=== PATIENT | female | born 1960 | race Caucasian/White ===

== ENCOUNTER 2017-08-13 16:14 | Emergency (ER) | payer OTHER ==
[~2017-08-13] VITALS: Ht 182.9 cm; Wt 64.0 kg
[~2017-08-13 16:14] MED LIST: ACCUNEB SO1.25 MG/1 INH; ACCUNEB0.63 MG/3 INH; ADVAIR 250-501 EACH INH; ALENDRONATE SOD70 MG PO; ALPRAZOLAM2 MG PO; AMBEREN; AMBIEN 10 MG TA10 MG PO; AMBIEN 5 MG TABL5 M1 PO; APAP500 PO; ATIVAN1 MG PO; AUGMENTIN 875-1 EACH PO; AUGMENTIN 875875 MG PO; AZITHROMYCIN 2250 MG PO; BACTRIM DS TAB1 EAC1 PO; BACTRIM DS TAB1 EACH PO; BENTYL10 MG PO; CALCIUM 600 +1 EAC8 PO; CALCIUM OYSTER500 MG; CARISOPRODOL 3350 MG PO; CELEBREX 200 M200 M1 PO; CELEBREX 200 M200 MG PO; CELEXA PO; CELEXA40 MG PO; CEPHALEXIN 500500 M3 PO; CIPRO250 M1 PO; CIPRO500 MG PO; CLEOCIN HCL300 MG PO; CLONAZEPAM 1 MG1 M1 PO; CLONAZEPAM PO; CLONIDINE0.1 PO; COLACE100 MG PO; COUMADIN 1MG TAB1 M1 PO; COUMADIN 4 MG TA4 M1 PO; COUMADIN 5 MG TA5 M1 PO; COUMADIN 5 MG TA5 MG PO; CYCLOBENZAPRINE10 MG PO; CYMBALTA30 MG PO; DEPAKOTE ER500 MG PO; DEPAKOTE PO; DILAUDID 2 MG TA2 MG PO; DIPHENOXYLATE/A1 TA1 PO; ENOXAPARIN30 MG/0.1 SUBQ; ENOXAPARIN80 MG/0.1 SUBQ; ENOXAPARIN80 MG/0.8 SUBQ; EXALGO16 MG PO; FERROUS FUMARA324 MG PO; FEVERALL650 MG RECTAL; FIORICET 50-301 EACH PO; FIORICET 50-321 EACH PO; FLAGYL500 M1 PO; FLAGYL500 MG PO; FLEXERIL PO; FLOMAX0.4 MG PO; FLONASE 0.05%50 MCG INH; FOSAMAX 70 MG T70 MG PO; GABAPENTIN PO; HYDROCHLOROTHIA25 M1 PO; HYDROCHLOROTHIA25 M2 PO; HYDROCHLOROTHIA50 MG; HYDROCODON-ACE1 EAC8 PO; HYDROCORTISONE3011; HYDROCORTISONE3011 TP; HYDROMORPHONE E16 MG PO; HYDROMORPHONE HC8 MG; IMITREX 50 MG T50 MG PO; IMITREX4 MG/0.5 M SQ; K-DUR 20 MEQ T20 MEQ PO; K-DUR10 MEQ PO; KEFLEX250 MG PO; KEFLEX500 MG PO; KEPPRA 500 MG500 M1 PO; KLOR-CON PO; LANSOPRAZOLE30 MG PO; LEVOTHYROXIN0.075 MG; LEVOTHYROXINE 0.15MG PO; LEVOTHYROXINE PO; LEVOTHYROXINE0.2 M1 PO; LEXAPRO 10 MG T10 M1 PO; LEXAPRO PO; LEXAPRO20 MG PO; LIDOCAINE PATCH; LIDODERM 5%1 PATCH; LIDODERM 5%1 PATCH TOP; LIDODERM 5%1 PATCH TRANSDERM; LOVENOX SC; MACROBID 100 M100 M1 PO; MEDROLDOSEPACK PO; MELOXICAM7.5 MG PO; MIRALAX17 GM PO; MOBIC15 MG PO; MS CONTIN60 MG PO; NEURONTIN 300300 M1 PO; NITROGLYCERIN0.4 MG SL; NORCO 5-325 TA1 EACH PO; NORVASC5 MG PO; ONDANSETRON HCL4 M2 PO; OXYCODONE HCL 55 MG PO; OXYCODONE HCL10 MG; OXYCODONE HCL10 MG PO; OXYCODONE HCL15 MG; OXYCODONE HCL15 MG PO; OXYCONTIN30 MG PO; OXYCONTIN40 MG PO; PERCOCET 10-321 EACH PO; PERCOCET 5-3251 EACH PO; PERCOCET 7.5-31 EACH PO; PHENERGAN 25 MG25 M1 PO; PHENERGAN 25 MG25 MG PO; POTASSIUM20 PO; PREDNISONE 20 M20 M1 PO; PROAIR HFA8.5 GM INH; PROMETHAZINE HC25 M1 PO; PROMETHAZINE12.5 M1 PO; PROMS25 WY RECTAL; PROTONIX40 M1 PO; ROXICODONE15 M1 PO; SIMVASTATIN20 MG PO; SPIRIVA INH; SYMBICORT160 MCG/4. INH; SYMBICORT80 MCG/4.1 INH; SYNTHROID175 MCG; SYNTHROID200 MCG PO; SYNTHROID25 MCG PO; THERA-TABS M C1 EACH PO; TOPAMAX 25 MG T25 M1 PO; TOPAMAX50 MG PO; VANCOCIN 125 M125 M1 MC; VANCOMYCIN1 GM/100 M; VENTOLIN HFA INH8 GM INH; VERAPAMIL ER240 MG PO; VERAPAMIL ER300 MG PO; VERAPAMIL HCL360 MG PO; VERAPAMIL PO; XANAX 1 MG TABLE1 MG PO; XANAX1 MG PO; XARELTO10 MG PO; XARELTO15 MG PO; XARELTO20 MG PO; ZANAFLEX4 MG PO; ZOCOR 10 MG TAB10 MG PO; ZOCOR 20 MG TAB20 M1 PO; ZOFRAN ODT4 MG PO; ZOFRAN4 MG PO; ZYPREXA 10 MG T10 M1; ZYPREXA 10 MG T10 MG PO; ZYPREXA 5 MG TAB5 M1 PO; ZYPREXA20 MG PO; ZYVOX600 MG
[2017-08-13 19:12] VITALS: BP 151/101
== END 2017-08-13 19:13 | disposition home or self-care (01) ==
LOC: M.ERS 16:14
DX: G43.909 Migraine, unspecified, not intractable, without status migrainosus (principal); I10 Essential (primary) hypertension; E89.0 Postprocedural hypothyroidism; J44.9 Chronic obstructive pulmonary disease, unspecified; G40.909 Epilepsy, unspecified, not intractable, without status epilepticus; F17.210 Nicotine dependence, cigarettes, uncomplicated; F10.99 Alcohol use, unspecified with unspecified alcohol-induced disorder; Z86.73 Personal history of transient ischemic attack (TIA), and cerebral infarction without residual deficits; Z86.718 Personal history of other venous thrombosis and embolism; Z98.890 Other specified postprocedural states; Z88.1 Allergy status to other antibiotic agents; Z88.5 Allergy status to narcotic agent; Z88.6 Allergy status to analgesic agent

== ENCOUNTER 2017-11-04 18:54 | Emergency (ER) | payer OTHER ==
[~2017-11-04] VITALS: Ht 182.9 cm; Wt 64.0 kg
[2017-11-04 20:04] LABS: ABSOLUTE BASOPHILS 0.1 thou/uL (0.0-0.2); ABSOLUTE MONOCYTES 0.7 thou/uL (0.0-1.2); ABSOLUTE NEUTROPHILS 14.6 thou/uL (1.6-8.1); BASOPHILS 0.8 %; HEMATOCRIT 43.1 % (37.0-47.0); HEMOGLOBIN 14.6 gm/dL (12.0-15.0); LYMPHOCYTES 16.2 %; MCHC 33.9 g/dL (28.0-37.0); MCV 85.7 fL (80.0-100.0); MONOCYTES 3.6 %; MPV 9.2 fl. (7.2-11.1); NUCLEATED RBCS 0 /100WBC; PLATELET COUNT* 324 thou/uL (150-400); POLYS 79.4 %; RBC 5.03 mil/uL (4.20-5.00); RDW-CV 17.1 % (10.5-14.5); WBC 18.3 thou/uL (4.0-11.0)
[2017-11-04 20:19] LABS: ANION GAP 24 mmol/L (7-16); BUN 11 mg/dL (7-18); CALCIUM 8.3 mg/dL (8.5-10.1); CHLORIDE 102 mmol/L (98-107); CO2 13 mmol/L (21-32); CREATININE 0.8 mg/dL (0.6-1.3); GLUCOSE 126 mg/dL (70-99); SODIUM 139 mmol/L (136-145)
[2017-11-04 20:26] LABS: ALKALINE PHOSPHATASE 106 U/L (46-116); SGOT 25 U/L (15-37); SGPT 15 U/L (30-65); TOTAL BILIRUBIN 0.6 mg/dL (<0.1-1.0); TROPONIN-I LEVEL <0.06 ng/mL (<0.06)
[2017-11-04] MEDS ORDERED: PREDNISONE50 MG PO (22:12)
[2017-11-04] MEDS ORDERED: ZPAK PO (22:12)
[2017-11-04 22:34] VITALS: BP 135/69
--- NOTE | 2017-11-05 11:00 | EKG ---
[place] [address] ELECTROCARDIOGRAM REPORT Name: JOSE M RICHARD Room: [facility]#: [id number] Admission: 11/04/17 Attend Phys: Discharge: 11/04/17 Date of : 60 Report #: [id number] THIS REPORT FOR: //name// [facility] ED Test Date: 2017-11-04 Test Time: 19:02:08 Pat Name: JOSE M HILARY Department: Room: Gender: F Retort Load Expediter: VINI : 1960 Requested By: Isabel Murphy Order Number: [id number] MD: Pedro Beckwith Measurements Intervals [place] Rate: 111 P: 62 HI: 138 QRS: 58 QRSD: 93 T: 42 QT: 355 QTc: 483 Interpretive Statements Sinus tachycardia artifact noted Compared to ECG 08/19/2016 21:59:47 artifact noted Electronically Signed On 11-05-2017 11:00:22 CONTACT LENS POLISHER by Pedro Beckwith [email or web address] <ELECTRONICALLY SIGNED> By: Pedro Beckwith MD, [facility] 11/05/17 1100 190 190 Pedro Beckwith MD, FACC /EPI
== END 2017-11-04 22:36 | disposition home or self-care (01) ==
LOC: M.ERS 18:54
PROVIDERS: Personal Emergency Response Attendant
DX: J40 Bronchitis, not specified as acute or chronic (principal); I10 Essential (primary) hypertension; J44.9 Chronic obstructive pulmonary disease, unspecified; G43.909 Migraine, unspecified, not intractable, without status migrainosus; M81.0 Age-related osteoporosis without current pathological fracture; F17.210 Nicotine dependence, cigarettes, uncomplicated; Z96.652 Presence of left artificial knee joint; Z86.718 Personal history of other venous thrombosis and embolism; Z86.711 Personal history of pulmonary embolism; Z86.73 Personal history of transient ischemic attack (TIA), and cerebral infarction without residual deficits; Z88.6 Allergy status to analgesic agent; Z88.1 Allergy status to other antibiotic agents; Z88.5 Allergy status to narcotic agent

== ENCOUNTER 2018-01-23 10:58 | Emergency (ER) | payer OTHER ==
[~2018-01-23] VITALS: Ht 182.9 cm; Wt 60.8 kg
[~2018-01-23 10:58] MED LIST changes: -MS CONTIN15 MG PO
[2018-01-23] MEDS ORDERED: MS CONTIN15 MG PO (11:31)
[2018-01-23] MEDS ORDERED: COUMADIN 5 MG TA5 M1 PO (11:32)
[2018-01-23] MEDS ORDERED: ONDANSETRON HCL4 M2 PO (12:54)
[2018-01-23 13:39] VITALS: BP 146/74
== END 2018-01-23 13:41 | disposition home or self-care (01) ==
LOC: M.ERS 10:58
DX: G43.909 Migraine, unspecified, not intractable, without status migrainosus (principal); I10 Essential (primary) hypertension; J44.9 Chronic obstructive pulmonary disease, unspecified; F17.210 Nicotine dependence, cigarettes, uncomplicated; Z88.1 Allergy status to other antibiotic agents; Z88.5 Allergy status to narcotic agent; Z88.8 Allergy status to other drugs, medicaments and biological substances

== ENCOUNTER → 2018-01-23 | Outpatient (CLI) | payer OTHER ==
[~2018-01-23] MED LIST changes: +MS CONTIN15 MG PO; +PREDNISONE50 MG PO; +ZPAK PO
== END ==
LOC: M.ULTRA 10:20
DX: R22.42 Localized swelling, mass and lump, left lower limb (principal)

== ENCOUNTER 2018-03-18 15:54 | Inpatient (IN) | payer OTHER ==
[~2018-03-18] VITALS: Ht 182.9 cm; Wt 68.0 kg
[~2018-03-18 15:54] MED LIST changes: +MS CONTIN15 MG PO
[2018-03-18 16:10] VITALS: BP 164/108
[2018-03-18 17:14] LABS: ABSOLUTE BASOPHILS 0.1 thou/uL (0.0-0.2); ABSOLUTE LYMPHOCYTES 1.9 thou/uL (0.8-5.3); ABSOLUTE MONOCYTES 0.4 thou/uL (0.0-1.2); ABSOLUTE NEUTROPHILS 5.3 thou/uL (1.6-8.1); EOSINOPHILS 0.1 %; HEMATOCRIT 34.5 % (37.0-47.0); HEMOGLOBIN 11.6 gm/dL (12.0-15.0); LYMPHOCYTES 24.9 %; MCH 27.8 pg (26.0-34.0); MCHC 33.6 g/dL (28.0-37.0); MCV 82.8 fL (80.0-100.0); MONOCYTES 5.7 %; MPV 8.7 fl. (7.2-11.1); NUCLEATED RBCS 0 /100WBC; PLATELET COUNT* 250 thou/uL (150-400); POLYS 68.3 %; RBC 4.17 mil/uL (4.20-5.00); RDW-CV 18.9 % (10.5-14.5); WBC 7.8 thou/uL (4.0-11.0)
[2018-03-18 17:28] LABS: CALCIUM 8.2 mg/dL (8.5-10.1); CREATININE 0.7 mg/dL (0.6-1.3)
[2018-03-18 17:33] LABS: ALBUMIN 3.8 g/dL (3.4-5.0); TOTAL BILIRUBIN 0.3 mg/dL (<0.1-1.0); TOTAL PROTEIN 7.6 g/dL (6.4-8.2)
[2018-03-18 17:53] LABS: ACETAMINOPHEN < 2 ug/mL (10-30); SALICYLATE 73.1 mg/dL (2.8-20.0)
[2018-03-18 19:09] LABS: APTT 78.4 Seconds (25.0-31.3); INR 9.1
[2018-03-18 19:26] LABS: NT-PRO BRAIN NAT PEPTIDE 371 pg/mL (<300); TROPONIN-I LEVEL <0.06 ng/mL (<0.06)
[2018-03-18 19:56] LABS: URINE BILIRUBIN NEGATIVE (Negative); URINE BLOOD NEGATIVE (Negative); URINE CLARITY CLEAR; URINE COLOR YELLOW; URINE GLUCOSE-RANDOM NEGATIVE (Negative); URINE KETONES NEGATIVE (Negative); URINE LEUKOCYTES-REFLEX NEGATIVE (Negative); URINE NITRITE-REFLEX NEGATIVE (Negative); URINE PROTEIN NEGATIVE (Negative); URINE SPECIFIC GRAVITY <= 1.005 (1.005-1.030); URINE UROBILINOGEN 0.2 E.U./dl (0.2-1.0)
[2018-03-18 20:04] LABS: AMP/METHAMP Negative (Negative); BARBITURATES Negative (Negative); BENZODIAZEPINES Negative (Negative); COCAINE Negative (Negative); METHADONE Negative (Negative); OPIATES Negative (Negative); PCP Negative (Negative); THC Negative (Negative)
[2018-03-18 20:18] LABS: BE -2.1 mmol/L (-2 to +3); PCO2 26.5 mmHg (35.0-45.0); PO2 88.8 mmHg (75.0-100.0); pH 7.496 (7.340-7.450)
--- NOTE | 2018-03-18 21:30 | NUR ---
ACCORDING TO DIALYSIS NURSE BANG, DR SHOEMAKER WANTS PATIENT DIALYZED TO TAKE THE ASPRIN OFF TONIGHT. HIS CALL BACK NUMBER IS [phone]. HE WOULD LIKE NOTIFIED WHEN HE CAN COME DIALYZE PATIENT.
[2018-03-18 22:22] LABS: PROTIME 79.6 Seconds (9.20-11.50)
[2018-03-18 22:27] LABS: INR 8.5
[2018-03-18 22:50] VITALS: BP 133/82
[2018-03-18 23:11] VITALS: BP 127/81
[2018-03-19] VITALS (12 sets, daily range): BP systolic 110–136; BP diastolic 61–84
[2018-03-19 01:12] LABS: INR 7.3; PROTIME 68.3 Seconds (9.20-11.50)
--- NOTE | 2018-03-19 04:22 | NUR ---
ADMITTED TO ICU BED 4 @ 2305. PT C/O HEADACHE AND CHRONIC PAIN, ONE DOSE MORPHINE ORDERED AND GIVEN WITH LITTLE RELIEF. PT OVERALL COOPERATIVE BUT AT TIMES VERY DEMANDING. C/O BEING HUNGRY, EDUCATED ON NPO STATUS FOR DIALYSIS CATH PLACEMENT TO WHICH PT REPLIED "I DON'T CARE, I KNOW THAT WHEN I'M HUNGRY I NEED TO EAT. I'LL HAVE SOMEONE BRING ME SOMETHING." PT KEEPS PURSE IN BED, DECLINED TO HAVE IT LOCKED IN SECURITY OFFICE. PURSE NOTED TO CONTAIN OTC PILL BOTTLES, PT REFUSED TO HAVE THEM SENT TO PHARMACY. PT INFORMED THAT SHE SHOULD NOT TAKE ANY MEDS OTHER THAN PRESCRIBED BY , SHE REPLIED "I DO IT MY WAY. IF I NEED IT I TAKE IT." PT MENTIONED SEVERAL TIMES CONSIDERING LEAVING AMA AND WAS EDUCATED ON THE RISKS DUE TO CONDITION. L BKA, PROSTHESIS PRESENT. PT ASSISTED TO BSC X1 WITH SBA ONLY, TRANSFERRED TO BSC INDEPENDENTLY WITHOUT USE OF PROSTHESIS. VSS. SPOKE TO DR SHOEMAKER @ 0400, REPORTED MOST RECENT SALICYLATE LEVEL. HE STATED THAT MOST LIKELY PT WILL NOT NEED DIALYSIS LEVEL IS TRENDING DOWN QUICKER THAN EXPECTED HOWEVER ROUNDING PHYSICIAN THIS AM TO MAKE FINAL DETERMINATION, REGULAR DIET ORDERED AT THIS TIME BY DR SHOEMAKER.
[2018-03-19 04:46] LABS: INR 2.5
[2018-03-19 08:58] LABS: CALCIUM 7.4 mg/dL (8.5-10.1); CREATININE 0.7 mg/dL (0.6-1.3); MAGNESIUM 1.9 mg/dL (1.8-2.4); POTASSIUM 3.1 mmol/L (3.5-5.1)
--- NOTE | 2018-03-19 09:46 | NUR ---
PATIENT BEING ARGUMENTATIVE, WANTS TO LEAVE AMA. EXPLAINED TO HER THAT SHE JUST GOT THE MEDICATIONS FOR HER MIGRAINE 30 MINUTES AGO AND NEEDS TO LET THEM WORK, PATIENT IS CONFUSED AND THINKS ITS 2010 AND ITS March. RESPIRATORY IN ROOM HAVING TO HOLD BREATHING TREATMENT FOR PATIENT BECAUSE SHE CAN NOT STAY AWAKE. PULLED OUT ONLY IV ON FOOT. NO IVS PRESENT AT THIS TIME. PATIENT WANTS TO SPEAK TO RAIL WASHER, JIGAR MALDONADO ON WAY.
--- NOTE | 2018-03-19 10:17 | EKG ---
[place] [address] ELECTROCARDIOGRAM REPORT Name: JOSE M RICHARD Room: [address] ADM IN M.R.#: [id number] Admission: 03/18/18 Attend Phys: Vera Paredes Discharge: Date of : 60 Report #: [id number] THIS REPORT FOR: //name// [facility] ED Test Date: 2018-03-18 Test Time: 18:52:49 Pat Name: JOSE M RICHARD Department: Room: Gender: F Collar Runner: : 1960 Requested By: Isabel Silveira Order Number: [id number] MD: Pedro Beckwith Measurements Intervals [place] Rate: 87 P: 74 HI: 139 QRS: 72 QRSD: 83 T: 56 QT: 406 QTc: 489 Interpretive Statements Sinus rhythm Multiple premature complexes, vent & supraven Borderline prolonged QT interval Compared to ECG 11/04/2017 19:02:08 Sinus tachycardia no longer present pvc and pac no longer seen Electronically Signed On 03-19-2018 10:17:24 CDT by Pedro Beckwith [email or web address] <ELECTRONICALLY SIGNED> By: Pedro Beckwith MD, FAC 03/19/18 1017 185 185 Pedro Beckwith MD, [facility] /EPI
--- NOTE | 2018-03-19 10:57 | NUR ---
PATIENT FRIEND AT BEDSIDE AT THIS TIME, PATIENT AGAIN WANTS TO LEAVE AMA, FRIEND ASKED WHAT WAS GOING ON, EXPLAINED THE CARE THAT SHE HAS RECEIVED AND THE PLAN OF CARE, FRIEND TOLD PATIENT THAT SHE IS NOT TAKING HER HOME AND THAT SHE NEEDS TO STAY AND GET BETTER AND FIGURE OUT WHAT IS CAUSING HER MIGRAINES. PATIENT IS AGREEING TO STAY AT THIS TIME, WILL CONTINUE TO MONITOR.
--- NOTE | 2018-03-19 11:12 | CON ---
[address] [address] CONSULTATION Name: JOSE M RICHARD Room: [address] IN M.R.#: [id number] Admission: 03/18/18 Attend Phys: Vera Paredes Discharge: Date of : 60 Report #: [id number] THIS REPORT FOR: //name// CC: Andres Longoria DATE OF SERVICE: 03/18/2018 RENAL CONSULTATION Thank you very much for asking me to see the patient. HISTORY OF PRESENT ILLNESS: The patient is a 58-year-old female without history of kidney disease. She presented to the Emergency Department today with complaints of severe chronic headache and chronic pain and the patient has been taking excessive amount of aspirin and renal consultation requested for management of an aspirin overdose. At this time, the patient notes nausea and vomiting. She did not have tinnitus. Her mental status appears to be at baseline. She has been previously seen for an aspirin overdose and seems to be familiar with its management. Otherwise, no other complaints were noted. PAST MEDICAL HISTORY: 1. Chronic pain. 2. Chronic recurrent migraine. 3. Left bjnsm-dsf-ubwk amputation. 4. Chronic hypokalemia. 5. History of CVA in 2005, 2006 and 2013. 6. Hypertension. 7. Previous aspirin overdose in 2016, which required acute hemodialysis. ALLERGIES: SHE HAS ALLERGIES TO NONSTEROIDAL ANTI-INFLAMMATORY AGENTS, AMOXICILLIN AND CODEINE. CURRENT MEDICATIONS: I do not have a current medication list. SOCIAL HISTORY: Notable for tobacco use. No alcohol use. FAMILY HISTORY: Negative for kidney disease. PHYSICAL EXAMINATION: VITAL SIGNS: Blood pressure 154/76, pulse 80, temperature 99. GENERAL: She is awake and alert. Mental status is at baseline. She is tachypneic on exam. MOUTH AND THROAT: Clear. NECK: No jugular [place] [address] CONSULTATION Name: JOSE M RICHARD AKUA Room: [address]#: [id number] Admission: 03/18/18 Attend Phys: Vera Paredes Discharge: Date of : 60 Report #: [id number] CHEST: Clear. HEART: Regular rate and rhythm. ABDOMEN: Soft. EXTREMITIES: There is no edema. LABORATORY DATA: Arterial blood gases a pH of 7.49, CO2 of 26.5, O2 of 88. Sodium of 142, potassium 3.0, chloride 105, CO2 of 21, BUN 9, creatinine 0.7. Salicylate level of 73. Drug screen was negative. CT scan of the head was negative. IMPRESSION: 1. Salicylate overdose. She has an initial salicylate level of 73, which is quite high. She would be at risk for mental status changes and intracerebral hypoglycemia. 2. Respiratory alkalosis due to a salicylate overdose. 3. Hypokalemia, chronic. 4. Hypertension. 5. Chronic pain. 6. Chronic recurrent migraine. 7. Left tforh-vjl-oxkn amputation. 8. History of cerebrovascular accident. 9. Hypertension. RECOMMENDATIONS: 1. The case was discussed in detail with Dr. Moody. 2. Begin IV fluids with bicarbonate. 3. Her INR is 9.1. This will need to be corrected. 4. Anticipate placement of a temporary hemodialysis catheter. 5. We will plan for hemodialysis this evening when possible. 6. Follow laboratory data carefully. Thank you very much for asking me to see this patient and allowing me to assist in her care. <ELECTRONICALLY SIGNED> By: Rosales Lewis MD 03/19/18 1112 2151 [id number] Lewis MD /nt
--- NOTE | 2018-03-19 11:51 | NUR ---
PT ADMITTED WITH UNINTENTIONAL ASPIRIN OVERDOSE, SHE HAD BEEN TAKING A LOT OF ASPIRIN FOR HER MIGRAINE. SALICYLATE LEVEL COMING DOWN, NO NEED FOR HEMODIALYSIS. PT CURRENTLY SLEEPING SO DID NOT DISTURB. PT HAS BEEN CONFUSED AND AGITATED THIS MORNING, HER FRIEND CAME TO VISIT HER, PT WANTING TO LEAVE AMA. FRIEND TOLD PT SHE WAS NOT TAKING HER HOME AND SHE NEEDED TO STAY TO BE TAKEN CARE OF. PT SETTLED DOWN SOME AND AGREEING TO STAY FOR NOW.
--- NOTE | 2018-03-19 13:04 | NUR ---
PATIENT WANTED TO SPEAK TO DR GREGG, CALLED HIM AND UPDATED HIM ON PATIENT COMPLAINTS, TRANSFERED HIM INTO PATIENT ROOM TO SPEAK WITH HER TO LET HER KNOW HE WAS NOT GOING TO ADJUST HER MEDICATIONS AND SHE SPOKE WITH HIM BRIEFLY AND HUNG UP ON HIM. SAYS SHE IS CALLING A RIDE TO GO HOME.
--- NOTE | 2018-03-19 16:45 | NUR ---
SALICICYLATE LEVEL IS 21 NOW, PATIENT DOESN'T WANT TO STAY OVERNIGHT, CALLED DR GREGG FOR DISCHARGE ORDERS. OK TO DISCHARGE, RECOMMEND NOT TAKING ASPIRIN FOR NEXT 24 HOURS AND TO FOLLOW UP WITH PRIMARY AND PAIN CLINIC DOCTOR. PATIENT COMMUNICATES UNDERSTANDING. PATIENT IS CALLING FRIEND TO PICK HER UP,
--- NOTE | 2018-03-19 17:06 | NUR ---
DISCHARGE INSTRUCTIONS GIVEN, ALL QUESTIONS ANSWERED. PATIENTS FRIEND IS ON HER WAY TO GET HER. ALL BELONGINGS PACKED AND PATIENT IS READY TO GO.
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
== END 2018-03-19 17:38 | disposition home or self-care (01) | DRG 917 ==
LOC: M.ERS 15:54 → M.TBA-ER 19:14 → M.ICU 19:14
PROVIDERS: Emergency Medicine; Internal Medicine; Physician Assistant; Surgery; ADMIT Internal Medicine
DX: T39.011A Poisoning by aspirin, accidental (unintentional), initial encounter (principal); G92 Toxic encephalopathy; D68.59 Other primary thrombophilia; E87.2 Acidosis; I10 Essential (primary) hypertension; J44.9 Chronic obstructive pulmonary disease, unspecified; E87.6 Hypokalemia; G43.909 Migraine, unspecified, not intractable, without status migrainosus; F17.210 Nicotine dependence, cigarettes, uncomplicated; M81.0 Age-related osteoporosis without current pathological fracture; E89.0 Postprocedural hypothyroidism; Z79.899 Other long term (current) drug therapy; Z88.6 Allergy status to analgesic agent; Z88.1 Allergy status to other antibiotic agents; Z89.512 Acquired absence of left leg below knee; Z88.5 Allergy status to narcotic agent; Z88.8 Allergy status to other drugs, medicaments and biological substances; Z86.73 Personal history of transient ischemic attack (TIA), and cerebral infarction without residual deficits; Y92.89 Other specified places as the place of occurrence of the external cause

== ENCOUNTER → 2018-04-03 | Outpatient (CLI) | payer OTHER ==
[~2018-04-03] MED LIST changes: +CARAFATE 1 GM TA1 G1 PO; +DOXEPIN 75 MG C75 M1 PO; +HYDROCHLOROTH12.5 M1 PO
== END ==
LOC: M.ULTRA 04-02 09:30
DX: M85.651 Other cyst of bone, right thigh (principal)

== ENCOUNTER 2018-09-02 18:09 | Emergency (ER) | payer OTHER ==
[~2018-09-02] VITALS: Ht 182.9 cm; Wt 61.2 kg
[~2018-09-02 18:09] MED LIST changes: -CARAFATE 1 GM TA1 G1 PO; -DOXEPIN 75 MG C75 M1 PO; -HYDROCHLOROTH12.5 M1 PO
[2018-09-02 18:59] LABS: ABSOLUTE BASOPHILS 0.2 thou/uL (0.0-0.2); ABSOLUTE EOSINOPHILS 0.2 thou/uL (0.0-0.7); ABSOLUTE LYMPHOCYTES 3.4 thou/uL (0.8-5.3); ABSOLUTE MONOCYTES 0.6 thou/uL (0.0-1.2); ABSOLUTE NEUTROPHILS 11.7 thou/uL (1.6-8.1); BASOPHILS 1.3 %; EOSINOPHILS 1.3 %; HEMATOCRIT 40.3 % (37.0-47.0); HEMOGLOBIN 13.3 gm/dL (12.0-15.0); LYMPHOCYTES 21.1 %; MCH 29.1 pg (26.0-34.0); MCHC 32.9 g/dL (28.0-37.0); MCV 88.5 fL (80.0-100.0); MONOCYTES 3.6 %; MPV 9.5 fl. (7.2-11.1); NUCLEATED RBCS 0 /100WBC; PLATELET COUNT* 217 thou/uL (150-400); POLYS 72.7 %; RBC 4.56 mil/uL (4.20-5.00); RDW-CV 17.1 % (10.5-14.5)
[2018-09-02 19:05] LABS: INR 1.5; PROTIME 15.4 Seconds (9.20-11.50)
[2018-09-02 19:07] LABS: ANION GAP 11 mmol/L (7-16); BUN 11 mg/dL (7-18); CALCIUM 8.8 mg/dL (8.5-10.1); CHLORIDE 105 mmol/L (98-107); CO2 25 mmol/L (21-32); CREATININE 0.9 mg/dL (0.6-1.3); GLUCOSE 87 mg/dL (70-99); SODIUM 141 mmol/L (136-145)
[2018-09-02] MEDS ORDERED: DOXEPIN 75 MG C75 M1 PO (19:09)
[2018-09-02] MEDS ORDERED: CARAFATE 1 GM TA1 G1 PO (19:10)
[2018-09-02] MEDS ORDERED: HYDROCHLOROTH12.5 M1 PO (19:10)
[2018-09-02] MEDS ORDERED: KEFLEX250 MG PO (19:10)
[2018-09-02 19:17] LABS: ALBUMIN 3.6 g/dL (3.4-5.0); ALKALINE PHOSPHATASE 96 U/L (46-116); LIPASE 209 U/L (73-393); MAGNESIUM 1.7 mg/dL (1.8-2.4); NT-PRO BRAIN NAT PEPTIDE 44 pg/mL (<300); SGOT 19 U/L (15-37); SGPT 16 U/L (30-65); TOTAL BILIRUBIN 0.2 mg/dL (<0.1-1.0); TOTAL PROTEIN 6.9 g/dL (6.4-8.2); TROPONIN-I LEVEL <0.06 ng/mL (<0.06)
[2018-09-02 20:01] VITALS: BP 133/94
--- NOTE | 2018-09-03 15:27 | EKG ---
[place] [address] ELECTROCARDIOGRAM REPORT Name: JOSE M RICHARD Room: [facility]#: [id number] Admission: 09/02/18 Attend Phys: Discharge: 09/02/18 Date of : 60 Report #: [id number] THIS REPORT FOR: //name// [facility] ED Test Date: 2018-09-02 Test Time: 18:15:28 Pat Name: JOSE M RICHARD Department: Room: Gender: F Bread Packer: Coby ANTUNEZ : 1960 Requested By: Jake Whalen Order Number: [id number] MD: Harry Rodriguez Measurements Intervals [place] Rate: 97 P: 68 [place]: 143 QRS: 68 QRSD: 90 T: 56 QT: 362 QTc: 460 Interpretive Statements Sinus rhythm Compared to ECG 03/18/2018 18:52:49 No significant changes Electronically Signed On 09-03-2018 15:26:50 CYBER SECURITY by Harry Rodriguez [email or web address] <ELECTRONICALLY SIGNED> By: Harry Rodriguez MD, [facility] 09/03/18 1526 1815 1815 Harry Rodriguez MD, FACC /EPI
== END 2018-09-02 20:02 | disposition home or self-care (01) ==
LOC: M.ERS 18:09
PROVIDERS: Emergency Medicine Emergency Medical Services
DX: R07.89 Other chest pain (principal); I10 Essential (primary) hypertension; E89.0 Postprocedural hypothyroidism; J44.9 Chronic obstructive pulmonary disease, unspecified; G43.909 Migraine, unspecified, not intractable, without status migrainosus; M81.0 Age-related osteoporosis without current pathological fracture; F17.210 Nicotine dependence, cigarettes, uncomplicated; Z86.718 Personal history of other venous thrombosis and embolism; Z86.73 Personal history of transient ischemic attack (TIA), and cerebral infarction without residual deficits; Z86.711 Personal history of pulmonary embolism; Z88.1 Allergy status to other antibiotic agents; Z88.6 Allergy status to analgesic agent; Z88.8 Allergy status to other drugs, medicaments and biological substances

== ENCOUNTER 2019-04-14 12:14 | Emergency (ER) | payer MEDICARE ==
[~2019-04-14] VITALS: Ht 175.3 cm; Wt 71.7 kg
[~2019-04-14 12:14] MED LIST changes: +CARAFATE 1 GM TA1 G1 PO; +DOXEPIN 75 MG C75 M1 PO; +HYDROCHLOROTH12.5 M1 PO
[2019-04-14] MEDS ORDERED: FEMARA2.5 MG PO (12:24)
[2019-04-14 12:39] LABS: ABSOLUTE BASOPHILS 0.1 thou/uL (0.0-0.2); ABSOLUTE EOSINOPHILS 0.1 thou/uL (0.0-0.7); ABSOLUTE LYMPHOCYTES 1.6 thou/uL (0.8-5.3); ABSOLUTE MONOCYTES 0.3 thou/uL (0.0-1.2); ABSOLUTE NEUTROPHILS 3.9 thou/uL (1.6-8.1); BASOPHILS 1.3 %; HEMATOCRIT 35.6 % (37.0-47.0); HEMOGLOBIN 11.9 gm/dL (12.0-15.0); MCH 28.7 pg (26.0-34.0); MCHC 33.5 g/dL (28.0-37.0); MCV 85.7 fL (80.0-100.0); MONOCYTES 5.1 %; MPV 8.4 fl. (7.2-11.1); NUCLEATED RBCS 0 /100WBC; PLATELET COUNT* 318 thou/uL (150-400); POLYS 64.6 %; RBC 4.15 mil/uL (4.20-5.00); RDW-CV 15.2 % (10.5-14.5)
[2019-04-14 12:46] LABS: CALCIUM 9.1 mg/dL (8.5-10.1); CREATININE 0.9 mg/dL (0.6-1.3); POTASSIUM 3.5 mmol/L (3.5-5.1)
[2019-04-14 12:51] LABS: ALBUMIN 3.5 g/dL (3.4-5.0); TOTAL BILIRUBIN 0.1 mg/dL (<0.1-1.0); TOTAL PROTEIN 7.3 g/dL (6.4-8.2)
[2019-04-14 13:13] LABS: URINE BILIRUBIN NEGATIVE (Negative); URINE BLOOD NEGATIVE (Negative); URINE CLARITY CLEAR; URINE COLOR YELLOW; URINE GLUCOSE-RANDOM NEGATIVE (Negative); URINE KETONES NEGATIVE (Negative); URINE LEUKOCYTES-REFLEX 1+ (Negative); URINE NITRITE-REFLEX NEGATIVE (Negative); URINE PROTEIN NEGATIVE (Negative); URINE SPECIFIC GRAVITY <= 1.005 (1.005-1.030); URINE UROBILINOGEN 0.2 E.U./dl (0.2-1.0)
[2019-04-14 13:20] LABS: AMP/METHAMP Negative (Negative); BACTERIA-REFLEX 1-9 Few /HPF (None Seen); BARBITURATES Negative (Negative); BENZODIAZEPINES Negative (Negative); CASTS None Seen /LPF (None Seen); COCAINE Negative (Negative); METHADONE Negative (Negative); MUCUS None Seen strn/LPF (None Seen); OPIATES Negative (Negative); PCP Negative (Negative); SQUAMOUS 4-10 Moderate /LPF (0-3); THC Negative (Negative); URINE RBC 0-2 Rare /HPF (0-2); URINE WBC-REFLEX 0-5 Rare /HPF (0-5)
[2019-04-14 13:21] LABS: CRYSTALS None Seen /LPF (None Seen)
[2019-04-14 13:24] VITALS: BP 132/72
== END 2019-04-14 13:25 | disposition home or self-care (01) ==
LOC: M.ERS 12:14
PROVIDERS: Physician Assistant
DX: G43.909 Migraine, unspecified, not intractable, without status migrainosus (principal); T39.011A Poisoning by aspirin, accidental (unintentional), initial encounter; F17.210 Nicotine dependence, cigarettes, uncomplicated; I10 Essential (primary) hypertension; M81.0 Age-related osteoporosis without current pathological fracture; Z88.8 Allergy status to other drugs, medicaments and biological substances; Z88.1 Allergy status to other antibiotic agents; Z88.5 Allergy status to narcotic agent; Z90.89 Acquired absence of other organs; Z86.73 Personal history of transient ischemic attack (TIA), and cerebral infarction without residual deficits; Z86.718 Personal history of other venous thrombosis and embolism; Z85.3 Personal history of malignant neoplasm of breast; Y92.89 Other specified places as the place of occurrence of the external cause

== ENCOUNTER 2019-09-08 14:29 | Emergency (ER) | payer OTHER ==
[~2019-09-08] VITALS: Ht 182.9 cm; Wt 72.6 kg
[~2019-09-08 14:29] MED LIST changes: +FEMARA2.5 MG PO
[2019-09-08] MEDS ORDERED: PERCOCET 10-321 EAC1 PO (14:37)
[2019-09-08 17:20] LABS: URINE BILIRUBIN NEGATIVE (Negative); URINE BLOOD NEGATIVE (Negative); URINE CLARITY CLEAR; URINE COLOR YELLOW; URINE GLUCOSE-RANDOM NEGATIVE (Negative); URINE KETONES NEGATIVE (Negative); URINE NITRITE-REFLEX NEGATIVE (Negative); URINE PROTEIN NEGATIVE (Negative); URINE SPECIFIC GRAVITY <= 1.005 (1.005-1.030); URINE UROBILINOGEN 0.2 E.U./dl (0.2-1.0)
[2019-09-08 17:21] LABS: URINE LEUKOCYTES-REFLEX 2+ (Negative)
[2019-09-08 17:31] LABS: BACTERIA-REFLEX >30 Many /HPF (None Seen); CASTS None Seen /LPF (None Seen); CRYSTALS None Seen /LPF (None Seen); SQUAMOUS >10 Many /LPF (0-3); URINE RBC 0-2 Rare /HPF (0-2); URINE WBC-REFLEX 6-15 Few /HPF (0-5)
[2019-09-08 17:41] LABS: ABSOLUTE BASOPHILS 0.1 thou/uL (0.0-0.2); ABSOLUTE EOSINOPHILS 0.1 thou/uL (0.0-0.7); ABSOLUTE LYMPHOCYTES 2.8 thou/uL (0.8-5.3); ABSOLUTE MONOCYTES 0.4 thou/uL (0.0-1.2); ABSOLUTE NEUTROPHILS 5.7 thou/uL (1.6-8.1); BASOPHILS 1.1 %; EOSINOPHILS 0.9 %; HEMATOCRIT 37.5 % (37.0-47.0); HEMOGLOBIN 12.6 gm/dL (12.0-15.0); LYMPHOCYTES 30.7 %; MCH 28.2 pg (26.0-34.0); MCHC 33.7 g/dL (28.0-37.0); MCV 83.8 fL (80.0-100.0); MONOCYTES 4.3 %; MPV 9.7 fl. (7.2-11.1); NUCLEATED RBCS 0 /100WBC; PLATELET COUNT* 194 thou/uL (150-400); RBC 4.48 mil/uL (4.20-5.00); RDW-CV 17.8 % (10.5-14.5)
[2019-09-08 17:53] LABS: CALCIUM 9.3 mg/dL (8.5-10.1); POTASSIUM 3.8 mmol/L (3.5-5.1)
[2019-09-08 17:54] LABS: APTT 28.3 Seconds (25.0-31.3); PROTIME 10.4 Seconds (9.20-11.50)
[2019-09-08 17:57] LABS: ALBUMIN 3.7 g/dL (3.4-5.0); TOTAL BILIRUBIN 0.2 mg/dL (<0.1-1.0); TOTAL PROTEIN 7.2 g/dL (6.4-8.2)
[2019-09-08] MEDS ORDERED: ONDANSETRON HCL4 M2 PO (19:08)
[2019-09-08] MEDS ORDERED: NORCO 5-325 TA1 EAC1 PO (19:09)
[2019-09-08 19:29] VITALS: BP 141/91
--- NOTE | 2019-09-09 11:01 | EKG ---
[place] [address] ELECTROCARDIOGRAM REPORT Name: JOSE M RICHARD Room: [facility]#: [id number] Admission: 09/08/19 Attend Phys: Discharge: 09/08/19 Date of : 60 Report #: [id number] THIS REPORT FOR: //name// [facility] ED Test Date: 2019-09-08 Test Time: 17:22:24 Pat Name: JOSE M OTTSABRINA Department: Room: Gender: F Ripsaw Matcher: ANGELA : 1960 Requested By: iVlma Mc Order Number: [id number] MD: Harry Rodriguez Measurements Intervals [place] Rate: 96 P: 64 [place]: 152 QRS: 64 QRSD: 95 T: 44 QT: 370 QTc: 468 Interpretive Statements Sinus rhythm Probable left atrial enlargement Borderline T abnormalities, anterior leads Compared to ECG 09/02/2018 18:15:28 T-wave abnormality now present Electronically Signed On 09-09-2019 11:01:16 RIM ROLLER SETTER by Harry Rodriguez [email or web address] <ELECTRONICALLY SIGNED> By: Harry Rodriguez MD, [facility] 09/09/19 1101 172 172 Harry Rodriguez MD, FAC /EPI
== END 2019-09-08 19:30 | disposition home or self-care (01) ==
LOC: M.ERS 14:29
PROVIDERS: Nurse Practitioner Family
DX: K82.0 Obstruction of gallbladder (principal); D35.02 Benign neoplasm of left adrenal gland; E89.0 Postprocedural hypothyroidism; I10 Essential (primary) hypertension; J44.9 Chronic obstructive pulmonary disease, unspecified; G43.909 Migraine, unspecified, not intractable, without status migrainosus; M81.0 Age-related osteoporosis without current pathological fracture; F17.210 Nicotine dependence, cigarettes, uncomplicated; Z88.1 Allergy status to other antibiotic agents; Z88.5 Allergy status to narcotic agent; Z88.6 Allergy status to analgesic agent; Z88.8 Allergy status to other drugs, medicaments and biological substances; Z95.5 Presence of coronary angioplasty implant and graft; Z85.3 Personal history of malignant neoplasm of breast

== ENCOUNTER 2019-10-21 15:33 | Emergency (ER) | payer OTHER ==
[~2019-10-21] VITALS: Ht 182.9 cm; Wt 77.1 kg
[~2019-10-21 15:33] MED LIST changes: +NORCO 5-325 TA1 EAC1 PO; +PERCOCET 10-321 EAC1 PO
[2019-10-21 16:32] LABS: URINE BILIRUBIN NEGATIVE (Negative); URINE BLOOD NEGATIVE (Negative); URINE CLARITY CLEAR; URINE COLOR YELLOW; URINE GLUCOSE-RANDOM NEGATIVE (Negative); URINE KETONES NEGATIVE (Negative); URINE LEUKOCYTES-REFLEX 1+ (Negative); URINE NITRITE-REFLEX NEGATIVE (Negative); URINE PROTEIN NEGATIVE (Negative); URINE SPECIFIC GRAVITY <= 1.005 (1.005-1.030); URINE UROBILINOGEN 0.2 E.U./dl (0.2-1.0)
[2019-10-21 16:42] LABS: ABSOLUTE BASOPHILS 0.1 thou/uL (0.0-0.2); ABSOLUTE LYMPHOCYTES 2.3 thou/uL (0.8-5.3); ABSOLUTE MONOCYTES 0.3 thou/uL (0.0-1.2); ABSOLUTE NEUTROPHILS 3.8 thou/uL (1.6-8.1); BASOPHILS 1.5 %; EOSINOPHILS 0.5 %; HEMATOCRIT 39.9 % (37.0-47.0); HEMOGLOBIN 13.6 gm/dL (12.0-15.0); LYMPHOCYTES 34.7 %; MCHC 34.1 g/dL (28.0-37.0); MONOCYTES 4.8 %; MPV 9.7 fl. (7.2-11.1); NUCLEATED RBCS 0 /100WBC; PLATELET COUNT* 212 thou/uL (150-400); POLYS 58.5 %; RBC 4.69 mil/uL (4.20-5.00); RDW-CV 18.5 % (10.5-14.5); WBC 6.5 thou/uL (4.0-11.0)
[2019-10-21 16:44] LABS: SQUAMOUS >10 Many /LPF (0-3)
[2019-10-21 16:45] LABS: BACTERIA-REFLEX >30 Many /HPF (None Seen); CASTS None Seen /LPF (None Seen); CRYSTALS None Seen /LPF (None Seen); MUCUS 0-3 Light strn/LPF (None Seen); URINE RBC None Seen /HPF (0-2); URINE WBC-REFLEX 6-15 Few /HPF (0-5)
[2019-10-21 16:50] LABS: CALCIUM 8.2 mg/dL (8.5-10.1); CREATININE 1.1 mg/dL (0.6-1.3); POTASSIUM 3.2 mmol/L (3.5-5.1)
[2019-10-21 16:54] LABS: ALBUMIN 4.1 g/dL (3.4-5.0); TOTAL BILIRUBIN 0.3 mg/dL (<0.1-1.0); TOTAL PROTEIN 7.7 g/dL (6.4-8.2)
[2019-10-21] MEDS ORDERED: KEFLEX500 M2 PO (18:09)
[2019-10-21 18:30] VITALS: BP 173/112
--- NOTE | 2019-10-22 15:00 | EKG ---
[place] [address] ELECTROCARDIOGRAM REPORT Name: JOSE M RICHARD Room: [facility]#: [id number] Admission: 10/21/19 Attend Phys: Discharge: 10/21/19 Date of : 60 Report #: [id number] THIS REPORT FOR: //name// [facility] ED Test Date: 2019-10-21 Test Time: 17:36:34 Pat Name: JOSE M RICHARD Department: Room: Gender: F Trouble Locater: MS : 1960 Requested By: Gabrielle Handy Order Number: [id number] MD: Felix Jacome Measurements Intervals [place] Rate: 70 P: 57 PA: 164 QRS: 59 QRSD: 111 T: 58 QT: 498 QTc: 538 Interpretive Statements Sinus rhythm Prolonged QT interval Baseline wander in lead(s) I,II,III,aVL,aVF,V1,V2,V3 Compared to ECG 09/08/2019 17:22:24 Prolonged QT interval now present T-wave abnormality no longer present Electronically Signed On 10-22-2019 15:00:12 ENDBAND SIZER by Felix Jacome [email or web address] <ELECTRONICALLY SIGNED> By: Felix Jacome MD, FAC 10/22/19 1500 1736 1736 Felix Jacome MD, [facility] /EPI
== END 2019-10-21 18:35 | disposition home or self-care (01) ==
LOC: M.ERS 15:33
PROVIDERS: Physician Assistant
DX: N39.0 Urinary tract infection, site not specified (principal); R11.2 Nausea with vomiting, unspecified; R19.7 Diarrhea, unspecified; I10 Essential (primary) hypertension; J44.9 Chronic obstructive pulmonary disease, unspecified; G43.909 Migraine, unspecified, not intractable, without status migrainosus; F17.210 Nicotine dependence, cigarettes, uncomplicated; Z88.1 Allergy status to other antibiotic agents; Z88.5 Allergy status to narcotic agent; Z88.8 Allergy status to other drugs, medicaments and biological substances; Z86.718 Personal history of other venous thrombosis and embolism; Z86.711 Personal history of pulmonary embolism; Z86.73 Personal history of transient ischemic attack (TIA), and cerebral infarction without residual deficits; Z85.3 Personal history of malignant neoplasm of breast

== ENCOUNTER 2020-03-06 17:06 | Emergency (ER) | payer OTHER, MEDICAID ==
[~2020-03-06] VITALS: Ht 182.9 cm; Wt 68.5 kg
[~2020-03-06 17:06] MED LIST changes: +KEFLEX500 M2 PO
[2020-03-06] MEDS ORDERED: LEXAPRO20 MG PO (17:32)
[2020-03-06] MEDS ORDERED: LEVETIRACETAM500 M1 PO (17:34)
[2020-03-06] MEDS ORDERED: SIMVASTATIN80 MG PO (17:37)
[2020-03-06] MEDS ORDERED: DEPAKOTE500 MG PO (17:39)
[2020-03-06] MEDS ORDERED: ABILIFY 5 MG TAB5 MG PO (17:40)
[2020-03-06] MEDS ORDERED: SPIRONOLACTONE50 MG PO (17:40)
[2020-03-06] MEDS ORDERED: CHLORTHALIDONE25 MG PO (17:41)
[2020-03-06] MEDS ORDERED: OMEPRAZOLE 20 M20 M1 PO (17:41)
[2020-03-06] MEDS ORDERED: NEURONTIN300 MG PO (17:42)
[2020-03-06] MEDS ORDERED: LIDODERM1 EACH TRANSDERM (17:42)
[2020-03-06] MEDS ORDERED: PROMS25 WY RECTAL (17:43)
[2020-03-06] MEDS ORDERED: PERCOCET PO (18:05)
[2020-03-06 18:22] VITALS: BP 142/93
== END 2020-03-06 18:24 | disposition home or self-care (01) ==
LOC: M.ERS 17:06
DX: M54.5 Low back pain (principal); G89.29 Other chronic pain; I10 Essential (primary) hypertension; J44.9 Chronic obstructive pulmonary disease, unspecified; G43.909 Migraine, unspecified, not intractable, without status migrainosus; M81.0 Age-related osteoporosis without current pathological fracture; F17.210 Nicotine dependence, cigarettes, uncomplicated; Z90.49 Acquired absence of other specified parts of digestive tract; Z86.711 Personal history of pulmonary embolism; Z86.718 Personal history of other venous thrombosis and embolism; Z86.73 Personal history of transient ischemic attack (TIA), and cerebral infarction without residual deficits; Z85.3 Personal history of malignant neoplasm of breast; Z88.1 Allergy status to other antibiotic agents; Z88.6 Allergy status to analgesic agent; Z88.8 Allergy status to other drugs, medicaments and biological substances

== ENCOUNTER → 2020-05-25 | Outpatient (CLI) | payer OTHER, MEDICAID ==
[~2020-05-25] MED LIST changes: +ABILIFY 5 MG TAB5 MG PO; +ASA81BEC PO; +ATIVAN0.5 M1 PO; +CHLORTHALIDONE25 MG PO; +DEPAKOTE500 MG PO; +DIVALPROEX SOD250 M1 PO; +FLONASE 0.05%50 MCG NARES; +IMITREX6 MG/0.51; +LEVETIRACETAM500 M1 PO; -LEVOTHYROXINE 0.15MG PO; +LIDODERM1 EACH TRANSDERM; +NEURONTIN300 MG PO; +OMEPRAZOLE 20 M20 M1 PO; +PERCOCET PO; +PROVENTIL HFA6.7 G1 INH; +SIMVASTATIN80 MG PO; +SPIRONOLACTONE50 MG PO; +SUPER THERAVIT1 EACH PO; +SYNTHROID112 MC1 PO
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
== END ==
LOC: M.PC 10:00
PROVIDERS: ATTEND Anesthesiology Pain Medicine
DX: G89.29 Other chronic pain (principal); K21.9 Gastro-esophageal reflux disease without esophagitis; J44.9 Chronic obstructive pulmonary disease, unspecified; G43.909 Migraine, unspecified, not intractable, without status migrainosus; I63.9 Cerebral infarction, unspecified; F41.9 Anxiety disorder, unspecified; F31.81 Bipolar II disorder; E03.9 Hypothyroidism, unspecified; R56.9 Unspecified convulsions; I10 Essential (primary) hypertension; F51.05 Insomnia due to other mental disorder; M54.2 Cervicalgia; M47.816 Spondylosis without myelopathy or radiculopathy, lumbar region; K83.9 Disease of biliary tract, unspecified; N32.81 Overactive bladder; R10.11 Right upper quadrant pain